=== PATIENT | female | born 1960 | race Caucasian/White ===

== ENCOUNTER 2017-02-11 08:21 | Emergency (ER) | payer OTHER ==
[~2017-02-11] VITALS: Ht 152.4 cm; Wt 104.5 kg
[2017-02-11 08:23] VITALS: BP 128/67; PULSE 85; TEMP 98.6
[2017-02-11] MEDS ORDERED: JANUVIA 100MG100 MG PO (08:28)
[2017-02-11] MEDS ORDERED: LIPITOR 40MG TA40 MG PO (08:28)
[2017-02-11] MEDS ORDERED: GLUCOPHAGE1000 MG PO (08:29)
[2017-02-11] MEDS ORDERED: ISOPTIN SR180 M1 PO (08:29)
[2017-02-11] MEDS ORDERED: FLONASE NASAL S16 GM NS (08:29)
[2017-02-11] MEDS ORDERED: ZOLOFT 100MG100 MG PO (08:29)
[2017-02-11] MEDS ORDERED: PRINIVIL5 MG PO (08:30)
[2017-02-11] MEDS ORDERED: ULTRAM 50MG TAB50 MG PO (09:05)
== END 2017-02-11 09:29 | disposition home or self-care (01) ==
LOC: COL.ER 08:21
DX: M25.572 Pain in left ankle and joints of left foot (principal); M25.562 Pain in left knee; E11.9 Type 2 diabetes mellitus without complications; E78.5 Hyperlipidemia, unspecified; F32.9 Major depressive disorder, single episode, unspecified; Z79.84 Long term (current) use of oral hypoglycemic drugs
CPT/HCPCS: L1830

== ENCOUNTER → 2017-08-22 | Outpatient (CLI) | payer OTHER ==
[~2017-08-22] MED LIST: FLONASE NASAL S16 GM NS; GLUCOPHAGE1000 MG PO; ISOPTIN SR180 M1 PO; JANUVIA 100MG100 MG PO; LIPITOR 40MG TA40 MG PO; PRINIVIL5 MG PO; ULTRAM 50MG TAB50 MG PO; ZOLOFT 100MG100 MG PO
== END ==
LOC: MC.RAD 08-16 11:40
DX: Z12.31 Encounter for screening mammogram for malignant neoplasm of breast (principal)

== ENCOUNTER → 2017-11-02 | Outpatient (CLI) | payer OTHER ==
[~2017-11-02] VITALS: Ht 153.7 cm; Wt 107.0 kg
[~2017-11-02] MED LIST changes: +ASPIRIN E.C. 8181 MG PO; +ZYRTEC 10MG10 MG PO
[2017-11-02 08:32] VITALS: BP 100/62; PULSE 84
== END ==
LOC: LIGHT 10-18 16:32
DX: E11.65 Type 2 diabetes mellitus with hyperglycemia (principal); G47.33 Obstructive sleep apnea (adult) (pediatric); E78.5 Hyperlipidemia, unspecified; I10 Essential (primary) hypertension; Z68.42 Body mass index [BMI] 45.0-49.9, adult; Z71.3 Dietary counseling and surveillance
CPT/HCPCS: G0463

== ENCOUNTER → 2017-11-22 | Outpatient (CLI) | payer OTHER | LOC: LIGHT 12:56 | DX: Z01.89 Encounter for other specified special examinations (principal) ==

== ENCOUNTER → 2017-12-08 | Outpatient (CLI) | payer OTHER ==
[~2017-12-08] VITALS: Ht 153.7 cm; Wt 106.4 kg
[2017-12-08 09:27] VITALS: BP 114/72; PULSE 80
== END ==
LOC: LIGHT 09:20
DX: E11.65 Type 2 diabetes mellitus with hyperglycemia (principal); G47.33 Obstructive sleep apnea (adult) (pediatric); E78.5 Hyperlipidemia, unspecified; I10 Essential (primary) hypertension
CPT/HCPCS: G0463

== ENCOUNTER → 2018-01-12 | Outpatient (CLI) | payer OTHER ==
[~2018-01-12] VITALS: Ht 153.7 cm; Wt 103.6 kg
== END ==
LOC: LIGHT 09:37
DX: E11.65 Type 2 diabetes mellitus with hyperglycemia (principal); G47.33 Obstructive sleep apnea (adult) (pediatric); E78.5 Hyperlipidemia, unspecified; I10 Essential (primary) hypertension; E66.01 Morbid (severe) obesity due to excess calories; Z71.3 Dietary counseling and surveillance
CPT/HCPCS: G0463

== ENCOUNTER → 2018-02-09 | Outpatient (CLI) | payer OTHER ==
[~2018-02-09] VITALS: Ht 153.7 cm; Wt 104.1 kg
[2018-02-09 10:35] VITALS: BP 110/72; PULSE 88
== END ==
LOC: LIGHT 10:27
DX: E11.65 Type 2 diabetes mellitus with hyperglycemia (principal); G47.33 Obstructive sleep apnea (adult) (pediatric); E78.5 Hyperlipidemia, unspecified; I10 Essential (primary) hypertension; Z71.3 Dietary counseling and surveillance
CPT/HCPCS: G0463

== ENCOUNTER → 2018-02-17 | Outpatient (CLI) | payer OTHER | LOC: LIGHT 10:02 | DX: Z09 Encounter for follow-up examination after completed treatment for conditions other than malignant neoplasm (principal) ==

== ENCOUNTER → 2018-09-06 | Outpatient (CLI) | payer OTHER | LOC: MC.RAD 10:01 | DX: Z12.31 Encounter for screening mammogram for malignant neoplasm of breast (principal) ==

== ENCOUNTER → 2024-03-30 | Outpatient (CLI) | payer OTHER | LOC: COL.RAD 07:52 | DX: R22.32 Localized swelling, mass and lump, left upper limb (principal) ==